=== PATIENT | female | born 1990 | race Caucasian/White ===

== ENCOUNTER 2017-01-30 17:59 | Emergency (ER) | payer SELFPAY ==
[~2017-01-30] VITALS: Ht 172.7 cm; Wt 115.8 kg
[2017-01-30 18:04] VITALS: BP 133/81
[2017-01-30] MEDS ORDERED: LIDOCAINE/EPI 2% 1:100000 20 ML VIAL INJ ONE (18:50)
--- NOTE | 2017-01-30 19:32 | NUR ---
Patient to bed 04.
--- NOTE | 2017-01-30 19:39 | NUR ---
26Y F BIB FAMILY C/O PAIN TO SACRAL AREA X 2 DAYS----NOTED A FORMING PILONIDAL CYST. PT DENIES ANY N/V/D, SOB, CP AT THE MOMENT. PT BREATHING IS UNLABORED AND CLEAR BILAT. PT AAOXX4. HX---PILONIDAL CYST, RX---NONE
--- NOTE | 2017-01-30 20:10 | NUR ---
Patient being evaluated by physician DR LUI at bedside.
[2017-01-30 20:38] VITALS: BP 122/79
--- NOTE | 2017-01-30 20:38 | NUR ---
Patient discharged with v/s stable. Written and verbal after care instructions given and explained. Patient alert, oriented and verbalized understanding of instructions. Ambulatory with steady gait. All questions addressed prior to discharge. ID band removed. Patient advised to follow up with PMD. Rx of BACTRIM DS, MOTRIN 800MG given. Patient educated on indication of medication including possible reaction and side effects. Opportunity to ask questions provided and answered.
== END 2017-01-30 20:38 | disposition home or self-care (01) ==
LOC: MED 17:59
DX: L05.91 Pilonidal cyst without abscess (principal)
CPT/HCPCS: 10080; 99283; J2001

== ENCOUNTER 2018-12-08 14:58 | Emergency (ER) | payer MEDICAID ==
[~2018-12-08] VITALS: Ht 172.7 cm; Wt 99.8 kg
[2018-12-08 15:02] VITALS: BP 109/72
--- NOTE | 2018-12-08 15:03 | NUR ---
PT COMPLAING OF TAIL BONE PAIN SINCE LAST 4 DAYS. STATES TO HAD THIS PROBLEM TWICE BEFORE. PAIN 8/10 AT THIS TIME. PER PT HAD THE TAILBONE CYST DRAINAGE LAST YEAR. GETS WORSE WITH [facility]. MD TO SEE PT. WILL CONTINUE TO MONITOR PT.
--- NOTE | 2018-12-08 15:13 | NUR ---
PATIENT AMBULATED TO ER BED 9.
[2018-12-08] MEDS ORDERED: LIDOCAINE 1% 500 MG/50 ML VIAL INJ SCH (15:15)
--- NOTE | 2018-12-08 15:30 | NUR ---
Dr. Germain evaluating patient at bedside.
[2018-12-08] MEDS ORDERED: LIDOCAINE MPF 1% - 5 mL VIAL 5 ML ONE ×2 (15:46)
--- NOTE | 2018-12-08 16:02 | NUR ---
Dr. Germain at bedside for incision and drainage of cyst, accompanied by nurse Gayatri.
--- NOTE | 2018-12-08 16:20 | NUR ---
Patient discharged with v/s stable. Written and verbal after care instructions given and explained. Patient alert, oriented and verbalized understanding of instructions. Ambulatory with steady gait. All questions addressed prior to discharge. ID band removed. Patient advised to follow up with PMD. Rx of TRAMADOL, BACTRIM, MOTRIN given. Patient educated on indication of medication including possible reaction and side effects. Opportunity to ask questions provided and answered.
[2018-12-08 16:35] VITALS: BP 116/63
== END 2018-12-08 16:20 | disposition home or self-care (01) ==
LOC: MED 14:58
DX: L05.01 Pilonidal cyst with abscess (principal)
CPT/HCPCS: 10080; 81002; 81025; 99284; J2001; 99283

== ENCOUNTER 2019-03-05 17:59 | Emergency (ER) | payer SELFPAY ==
[~2019-03-05] VITALS: Ht 170.2 cm; Wt 122.5 kg
[2019-03-05 18:44] VITALS: BP 118/72
--- NOTE | 2019-03-05 19:22 | NUR ---
PT TO ER BED 12
--- NOTE | 2019-03-05 19:25 | NUR ---
c/o recurring pilonidal cyst to gluteal area x 2 days ago. states there was some drainage a couple days ago. seen in our er for same complaints. aa0x4. bed is down, lcoked, bed rail x 1, pa to see pt. hx---denies rx---none
--- NOTE | 2019-03-05 19:26 | NUR ---
mahsa rubio at bedside
[2019-03-05 19:35] VITALS: BP 115/73
--- NOTE | 2019-03-05 19:35 | NUR ---
Patient discharged with v/s stable. Written and verbal after care instructions given and explained. Patient alert, oriented and verbalized understanding of instructions. Ambulatory with steady gait. All questions addressed prior to discharge. ID band removed. Patient advised to follow up with PMD. Rx of IBUPROFEN AND KELFEX given. Patient educated on indication of medication including possible reaction and side effects. Opportunity to ask questions provided and answered. PT GIVEN MULTIPLE CLINICS TO FOLLOW UP WITH
== END 2019-03-05 19:35 | disposition home or self-care (01) ==
LOC: MED 17:59
DX: L05.01 Pilonidal cyst with abscess (principal); Z98.890 Other specified postprocedural states
CPT/HCPCS: 99283

== ENCOUNTER 2019-07-27 16:24 | Emergency (ER) | payer MEDICAID ==
[~2019-07-27] VITALS: Ht 170.2 cm; Wt 127.5 kg
[2019-07-27 16:41] VITALS: BP 111/64
--- NOTE | 2019-07-27 17:10 | NUR ---
29 Y/O F C/O LEFT FLANK PAIN X 1 WEEK 01/02 INTERMITENT, DOES NOT RADIATE. PT STATES SHE IS 6 WKS , [facility] CONFIRMED POS TEST IN ED TODAY. PT DENIES N/V/F. PT POSITIONED FOR COMFORT. S[place]IO
[2019-07-27] MEDS ORDERED: NACL 0.9% 1,000 ML IV ONE (17:30)
--- NOTE | 2019-07-27 17:35 | NUR ---
US tech at bedside for exam.
[2019-07-27] MEDS ORDERED: cefTRIAXone 1,000 MG VIAL ONE (17:44)
--- NOTE | 2019-07-27 18:23 | NUR ---
20 G IV PLACED IN PT RT AC W/O DIFFICULTY. ANTIBIOTICS RUNNING W/O DIFFICULTY WITH NACL. LABS WERE DRAWN AND TAKEN TO THE LAB FOR PROCESSING.
[2019-07-27 18:28] LABS: BASOPHILS # (AUTO) 0.1 K/uL (0.00-0.22); BASOPHILS % (AUTO) 0.5 % (0.0-2.0); EOSINOPHILS # (AUTO) 0.2 K/uL (0-0.4); EOSINOPHILS % (AUTO) 1.6 % (0.0-4.0); HEMATOCRIT 38.7 % (36-48); HEMOGLOBIN 13.1 g/dL (12.0-16.0); LYMPHOCYTES # (AUTO) 2.7 K/uL (2.5-16.5); LYMPHOCYTES % (AUTO) 25.9 % (20.5-51.1); MEAN CORPUSCULAR HEMOGLOBIN 29 pg (27-31); MEAN CORPUSCULAR HGB CONC 34 g/dL (33-37); MONOCYTES % (AUTO) 9.2 % (1.7-9.3); NEUTROPHILS # (AUTO) 6.6 K/uL (1.8-7.7); NEUTROPHILS % (AUTO) 62.8 % (42.2-75.2); PLATELET COUNT (AUTO) 332 K/uL (140-450); WHITE BLOOD COUNT (AUTO) 10.5 K/uL (4.8-10.8)
[2019-07-27 18:48] LABS: ALBUMIN 3.6 g/dL (3.4-5.0); ANION GAP 11.2 (8-16); CARBON DIOXIDE 27.6 mmol/L (21-32); CREATININE 0.6 mg/dL (0.6-1.3); POTASSIUM 3.8 mmol/L (3.5-5.1); TOTAL BILIRUBIN 0.3 mg/dL (0.0-1.0)
--- NOTE | 2019-07-27 19:15 | NUR ---
REPORT GIVEN BY LALITA DENISE. PT AAOX4. IV SITE @ [facility] 20G IS PATENT. ABT GIVEN AND NS 0.9% 1L GIVEN. PT RESTING IN BED EYES OPEN. BED LOCKED AND IN LOWEST POSITION.
--- NOTE | 2019-07-27 19:27 | NUR ---
PT D/C BY DR CARVALHO.
--- NOTE | 2019-07-27 19:28 | NUR ---
REPORT GIVEN TO HOWIE GARCIA FOR CHANGE OF SHIFT.
[2019-07-27 19:29] VITALS: BP 115/70
--- NOTE | 2019-07-30 09:01 | NUR ---
Late entry. Confirmed with RN that 0.9 NS IV completed at 1900
== END 2019-07-27 19:27 | disposition home or self-care (01) ==
LOC: MED 16:24
DX: O23.01 Infections of kidney in pregnancy, first trimester (principal); N12 Tubulo-interstitial nephritis, not specified as acute or chronic; Z3A.01 Less than 8 weeks gestation of pregnancy; Z98.890 Other specified postprocedural states
CPT/HCPCS: 36415; 76801; 80053; 81002; 81025; 84702; 85025; 86900; 86901; 96365; 99284; J0696; Q0092; J7030; J7060

== ENCOUNTER 2019-08-09 17:10 | Emergency (ER) | payer MEDICAID ==
[~2019-08-09] VITALS: Ht 168.9 cm; Wt 128.4 kg
[2019-08-09 17:54] VITALS: BP 110/61
--- NOTE | 2019-08-09 20:56 | NUR ---
PT TAKEN TO ER BED 10
--- NOTE | 2019-08-09 21:33 | NUR ---
29 Y/O FEMALE C/O LT FLANK PAIN X 3 DAYS. RATES PAIN 8/10 AND DESCRIBES IT SHARP. PT STATES SHE WAS HERE A COUPLE WEEKS AGO FOR THE SAME REASON AND SAID SHE AHD A KIDNEY INFECTION AND WAS SENT HOME WITH ANTIBIOTICS. PT STATES HER PAIN CAME BACK 3 DAYS AGO. PT ALSO STATES SHE IS 7 WEEKS PREG AND IS THIS IS HER FIRST PREG. LT FLANK IS TENDERNESS TO TOUCH. DENIES ANY DYSURIA AND BLOOD IN URINE. VSS. a & O X4. NKA. PMH: ANA.
--- NOTE | 2019-08-09 22:44 | NUR ---
Nydia anders in [facility] - 08/09/19 at 2300 by [facility] JAMES ROSE AT BEDSIDE.
--- NOTE | 2019-08-09 22:44 | NUR ---
JAMES ROSE AT BEDSIDE TO NEEMA BLACKWELL.
[2019-08-09] MEDS ORDERED: ACETAMINOPHEN 325 MG TAB PO ONE (23:05)
[2019-08-09 23:16] LABS: APPEARANCE,URINE HAZY (CLEAR); BILIRUBIN,URINE NEGATIVE (NEGATIVE); BLOOD, URINE NEGATIVE (NEGATIVE); COLOR,URINE YELLOW (YELLOW); LEUKOCYTE ESTERASE ,URINE TRACE (NEGATIVE); NITRITE, URINE NEGATIVE (NEGATIVE); PH,URINE 6.5 (5.0-9.0); UGLUCOSE NEGATIVE (NEGATIVE)
--- NOTE | 2019-08-09 23:19 | NUR ---
LAB AT BEDSIDE.
[2019-08-09 23:27] LABS: RBC,URINE 0-5 /HPF (0-5); WBC,URINE 0-5 /HPF (0-5)
[2019-08-09 23:40] LABS: BASOPHILS # (AUTO) 0.1 K/uL (0.00-0.22); BASOPHILS % (AUTO) 0.7 % (0.0-2.0); EOSINOPHILS # (AUTO) 0.2 K/uL (0-0.4); EOSINOPHILS % (AUTO) 1.8 % (0.0-4.0); HEMATOCRIT 41.1 % (36-48); HEMOGLOBIN 13.7 g/dL (12.0-16.0); LYMPHOCYTES % (AUTO) 28.4 % (20.5-51.1); MEAN CORPUSCULAR HEMOGLOBIN 29 pg (27-31); MEAN CORPUSCULAR HGB CONC 33 g/dL (33-37); MEAN CORPUSCULAR VOLUME 86.9 fL (80-94); MONOCYTES # (AUTO) 0.8 K/uL (0.8-1.0); MONOCYTES % (AUTO) 7.4 % (1.7-9.3); NEUTROPHILS # (AUTO) 6.6 K/uL (1.8-7.7); NEUTROPHILS % (AUTO) 61.7 % (42.2-75.2); PLATELET COUNT (AUTO) 336 K/uL (140-450); RED BLOOD CELL COUNT(AUTO) 4.73 MIL/uL (4.20-5.40); WHITE BLOOD COUNT (AUTO) 10.6 K/uL (4.8-10.8)
[2019-08-09 23:44] VITALS: BP 118/87
[2019-08-09 23:48] LABS: ANION GAP 13.2 (8-16); CARBON DIOXIDE 27.5 mmol/L (21-32); CREATININE 0.6 mg/dL (0.6-1.3); POTASSIUM 3.7 mmol/L (3.5-5.1)
== END 2019-08-10 00:45 | disposition home or self-care (01) ==
LOC: MED 17:10
DX: O23.41 Unspecified infection of urinary tract in pregnancy, first trimester (principal); O26.91 Pregnancy related conditions, unspecified, first trimester; R51 Headache; Z3A.01 Less than 8 weeks gestation of pregnancy
CPT/HCPCS: 36415; 80048; 81001; 85025; 87086; 99283

== ENCOUNTER 2020-05-23 12:06 | Emergency (ER) | payer MEDICAID ==
[~2020-05-23] VITALS: Ht 175.3 cm; Wt 117.9 kg
[2020-05-23 12:12] VITALS: BP 117/69
--- NOTE | 2020-05-23 12:20 | NUR ---
PATIENT PRESENTS TO ED WITH C/O SORE THROAT X 4 DAYS . DENIES N/V/D; SKIN IS PINK/WARM/DRY; AAOX4 WITH EVEN AND STEADY GAIT; LUNGS CLEAR BL; HR EVEN AND REGULAR; PT DENIES ANY FEVER, CP, SOB, OR COUGH AT THIS TIME; VSS; PATIENT POSITIONED FOR COMFORT; HOB ELEVATED; BEDRAILS UP X2; BED DOWN. ER MD MADE AWARE OF PT STATUS. WHITE PATCHES NOTED TO TONSILS
[2020-05-23] MEDS ORDERED: DEXAMETHASONE 10 MG/ML VIAL PO ONE (12:30)
[2020-05-23] MEDS ORDERED: KETOROLAC 30 MG/ML VIAL IM ONE (12:30)
--- NOTE | 2020-05-23 12:30 | NUR ---
STREB SWAB/ THROAT CULTURE OBTAINED
[2020-05-23 13:00] VITALS: BP 117/69
--- NOTE | 2020-05-23 13:05 | NUR ---
Patient discharged with v/s stable. Written and verbal after care instructions given and explained. Patient alert, oriented and verbalized understanding of instructions. Ambulatory with steady gait. All questions addressed prior to discharge. ID band removed. Patient advised to follow up with PMD. Rx of AMOXICILLIN, NAPROSYN, AND PERCOGESIC given. Patient educated on indication of medication including possible reaction and side effects. Opportunity to ask questions provided and answered.
== END 2020-05-23 13:05 | disposition home or self-care (01) ==
LOC: MED 12:06
DX: J02.9 Acute pharyngitis, unspecified (principal); Z87.828 Personal history of other (healed) physical injury and trauma
CPT/HCPCS: 87081; 96372; 99283; J1100; J1885

== ENCOUNTER 2020-12-14 18:36 | Emergency (ER) | payer MEDICAID ==
[~2020-12-14] VITALS: Ht 175.3 cm; Wt 136.5 kg
[2020-12-14 18:42] VITALS: BP 127/64
--- NOTE | 2020-12-14 19:05 | NUR ---
Patient ambulated to bed 9. RN evaluating the patient at bedside.
--- NOTE | 2020-12-14 19:08 | NUR ---
Dr. Jin examining patient.
[2020-12-14] MEDS ORDERED: ACET-8386 PO (19:19)
--- NOTE | 2020-12-14 19:19 | NUR ---
c/o left sided tooth pain that started yesterday. 7/10 pain that's sore and throbbing. reports difficulty sleeping. Left side of the cheek is slightly swollen, and pain upon palpation. Patient reports being 24weeks . VSS. AAOx4. PMH: Left arm surgery S[place]RARIO
[2020-12-14 19:48] VITALS: BP 112/60
--- NOTE | 2020-12-14 19:48 | NUR ---
Patient discharged with v/s stable. Written and verbal after care instructions given and explained. Patient alert, oriented and verbalized understanding of instructions. Ambulatory with steady gait. All questions addressed prior to discharge. ID band removed. Patient advised to follow up with PMD. Rx of hydrocodon-acetaminophen 5-325 given. Patient educated on indication of medication including possible reaction and side effects. Opportunity to ask questions provided and answered.
== END 2020-12-14 19:48 | disposition home or self-care (01) ==
LOC: MED 18:36
DX: O99.612 Diseases of the digestive system complicating pregnancy, second trimester (principal); K08.89 Other specified disorders of teeth and supporting structures; Z3A.24 24 weeks gestation of pregnancy
CPT/HCPCS: 99283

== ENCOUNTER 2020-12-25 11:45 | Observation (INO) | payer MEDICAID ==
[~2020-12-25] VITALS: Ht 175.3 cm; Wt 136.1 kg
[~2020-12-25 11:45] MED LIST: ACET-8386 PO
[2020-12-25 13:18] VITALS: BP 121/68
[2020-12-25] MEDS ORDERED: ACETAMINOPHEN EXTRA STRENGTH 500 MG TAB PO PRN (13:20)
== END 2020-12-25 17:30 | disposition home or self-care (01) ==
LOC: MLD 11:45
PROVIDERS: ADMIT Obstetrics & Gynecology; ATTEND Obstetrics & Gynecology
DX: O26.892 Other specified pregnancy related conditions, second trimester (principal); R10.2 Pelvic and perineal pain; O24.419 Gestational diabetes mellitus in pregnancy, unspecified control; Z3A.26 26 weeks gestation of pregnancy
CPT/HCPCS: 76805; G0378; 59025; 81000; G0379

== ENCOUNTER 2021-02-06 08:50 | Observation (INO) | payer MEDICAID ==
[~2021-02-06] VITALS: Ht 175.3 cm; Wt 133.8 kg
[2021-02-06] MEDS ORDERED: PNV91TAB8 PO (09:50)
[2021-02-06 10:06] VITALS: BP 131/65
== END 2021-02-06 10:05 | disposition home or self-care (01) ==
LOC: MLD 08:50
PROVIDERS: ADMIT Obstetrics & Gynecology; ATTEND Obstetrics & Gynecology
DX: O26.892 Other specified pregnancy related conditions, second trimester (principal); R10.9 Unspecified abdominal pain; Z3A.25 25 weeks gestation of pregnancy
CPT/HCPCS: 59025; G0378; 81000

== ENCOUNTER 2022-05-13 22:16 | Emergency (ER) | payer MEDICAID, OTHER ==
[~2022-05-13] VITALS: Ht 175.3 cm; Wt 127.0 kg
[~2022-05-13 22:16] MED LIST changes: -ACET-8386 PO; +PNV91TAB8 PO
[2022-05-13 23:30] VITALS: BP 112/68
--- NOTE | 2022-05-13 23:33 | NUR ---
TO LOBBY A/W BED AMBULATORY
--- NOTE | 2022-05-14 00:05 | NUR ---
PT TO BED 12
--- NOTE | 2022-05-14 00:42 | NUR ---
Dr. Haines examining patient.
[2022-05-14] MEDS ORDERED: ACETAMINOPHEN EXTRA STRENGTH 500 MG TAB PO ONE (00:50)
[2022-05-14] MEDS ORDERED: cephALEXin 500 MG CAP PO ONE (00:50)
--- NOTE | 2022-05-14 01:47 | NUR ---
US at bedside.
[2022-05-14] MEDS ORDERED: CEPH-588 PO (03:16)
[2022-05-14] MEDS ORDERED: PYR100 PO (03:16)
[2022-05-14] MEDS ORDERED: BEN10 PO (03:16)
[2022-05-14 03:25] VITALS: BP 118/68
--- NOTE | 2022-05-14 03:25 | NUR ---
Patient discharged with v/s stable. Written and verbal after care instructions given and explained. Patient alert, oriented and verbalized understanding of instructions. Ambulatory with steady gait. All questions addressed prior to discharge. ID band removed. Patient advised to follow up with PMD. Rx of Keflex, Bentyl and Pyridium given. Patient educated on indication of medication including possible reaction and side effects. Opportunity to ask questions provided and answered.
== END 2022-05-14 03:25 | disposition home or self-care (01) ==
LOC: MED 22:16
DX: N93.9 Abnormal uterine and vaginal bleeding, unspecified (principal); N39.0 Urinary tract infection, site not specified; Z79.899 Other long term (current) drug therapy
CPT/HCPCS: 76856; 81002; 81025; 93976; 99284; Q0092

== ENCOUNTER 2022-08-19 08:23 | Emergency (ER) | payer OTHER ==
[~2022-08-19] VITALS: Ht 175.3 cm; Wt 139.7 kg
[~2022-08-19 08:23] MED LIST changes: +BEN10 PO; +CEPH-588 PO; +PYR100 PO
[2022-08-19 08:30] VITALS: BP 123/67
--- NOTE | 2022-08-19 08:40 | NUR ---
ASSUMED PATIENT CARE, NURSING ASSESSMENT COMPLETED.
[2022-08-19] MEDS ORDERED: ACETAMINOPHEN 325 MG TAB PO ONE (08:45)
[2022-08-19] MEDS ORDERED: KETOROLAC 15 MG/ML VIAL IM ONE (08:45)
[2022-08-19 08:56] LABS: APPEARANCE,URINE CLEAR (CLEAR); BILIRUBIN,URINE NEGATIVE (NEGATIVE); BLOOD, URINE TRACE-I (NEGATIVE); COLOR,URINE YELLOW (YELLOW); LEUKOCYTE ESTERASE ,URINE NEGATIVE (NEGATIVE); NITRITE, URINE NEGATIVE (NEGATIVE); PH,URINE 7.5 (5.0-9.0); UGLUCOSE NEGATIVE (NEGATIVE)
[2022-08-19 09:11] LABS: RBC,URINE 0-5 /HPF (0-5); WBC,URINE 0-5 /HPF (0-5)
[2022-08-19 09:11] LABS: ALBUMIN 3.6 g/dL (3.4-5.0); ANION GAP 8.8 (8-16); BASOPHILS % (AUTO) 0.4 % (0.0-2.0); CARBON DIOXIDE 28.1 mmol/L (21-32); CREATININE 0.8 mg/dL (0.6-1.3); EOSINOPHILS # (AUTO) 0.1 K/uL (0-0.4); EOSINOPHILS % (AUTO) 1.1 % (0.0-4.0); HEMATOCRIT 39.8 % (36-48); HEMOGLOBIN 13.4 g/dL (12.0-16.0); LYMPHOCYTES # (AUTO) 2.4 K/uL (2.5-16.5); LYMPHOCYTES % (AUTO) 25.7 % (20.5-51.1); MEAN CORPUSCULAR HEMOGLOBIN 27 pg (27-31); MEAN CORPUSCULAR HGB CONC 34 g/dL (33-37); MEAN CORPUSCULAR VOLUME 80.9 fL (80-94); MONOCYTES # (AUTO) 0.7 K/uL (0.8-1.0); MONOCYTES % (AUTO) 6.9 % (1.7-9.3); NEUTROPHILS # (AUTO) 6.3 K/uL (1.8-7.7); NEUTROPHILS % (AUTO) 65.9 % (42.2-75.2); PLATELET COUNT (AUTO) 346 K/uL (140-450); POTASSIUM 3.9 mmol/L (3.5-5.1); RED BLOOD CELL COUNT(AUTO) 4.92 MIL/uL (4.20-5.40); RED CELL DISTRIBUTION WIDTH 14.4 % (11.6-13.7); TOTAL BILIRUBIN 0.4 mg/dL (0.0-1.0); WHITE BLOOD COUNT (AUTO) 9.5 K/uL (4.8-10.8)
[2022-08-19] MEDS ORDERED: ALUMINUM HYD/MAG/SIMETHICONE 30 ML UDC PO ONE (09:20)
[2022-08-19] MEDS ORDERED: ONDA-188 SL (10:07)
[2022-08-19] MEDS ORDERED: FAMO-90 PO (10:07)
[2022-08-19 10:19] VITALS: BP 114/52
--- NOTE | 2022-08-19 10:20 | NUR ---
DISPO AND MEDICAL DECISION MAKING, DC HOME WITH E-RX, AFTERCARE INSTRUCTIONS UNDERSTOOD BY PATIENT WELL, VS WNL, PAIN RESOLVED. DC HOME AMBULATORY.
== END 2022-08-19 10:20 | disposition home or self-care (01) ==
LOC: MED 08:23
DX: K80.20 Calculus of gallbladder without cholecystitis without obstruction (principal); Z79.899 Other long term (current) drug therapy; Z79.2 Long term (current) use of antibiotics
CPT/HCPCS: 36415; 76705; 80053; 81001; 81025; 83690; 85025; 96372; 99285; J1885; Q0092